=== PATIENT | female | born 1985 | race Caucasian/White ===

== ENCOUNTER 2019-04-05 08:12 | Emergency (ER) | payer BC ==
[~2019-04-05] VITALS: Ht 157.5 cm; Wt 60.1 kg
[2019-04-05 08:18] VITALS: BP 119/60
--- NOTE | 2019-04-05 08:25 | NUR ---
Abel ambulated to bed 6. RN evaluating patient at bedside.
--- NOTE | 2019-04-05 08:28 | NUR ---
33/F BIB SELF C/O RIGHT LOWER BACK PAIN X2 DAYS. NON-RADIATING INTERMITENT THROBING PAIN AT 5/10. EDD14, LMP 12/31/18, DONELL 09/07/18, .DENIES N/V/D; SKIN IS PINK/WARM/DRY; AAOX4 WITH EVEN AND STEADY GAIT; PATIENT POSITIONED FOR COMFORT; HOB ELEVATED; BEDRAILS UP X1; BED DOWN. ER MD MADE AWARE OF PT STATUS.
--- NOTE | 2019-04-05 08:33 | NUR ---
Dr. Caicedo evaluating patient at bedside.
[2019-04-05 08:59] LABS: APPEARANCE,URINE CLOUDY (CLEAR); BILIRUBIN,URINE NEGATIVE (NEGATIVE); COLOR,URINE YELLOW (YELLOW); LEUKOCYTE ESTERASE ,URINE 2+ (NEGATIVE); NITRITE, URINE POSITIVE (NEGATIVE); UGLUCOSE NEGATIVE (NEGATIVE)
[2019-04-05] MEDS ORDERED: cefTRIAXone 1,000 MG in LIDOCAINE MPF 1% - 5 mL VIAL 2.1 ML IM ONE (09:00)
--- NOTE | 2019-04-05 09:13 | NUR ---
Lashawn valiente in ED - 04/05/19 at 0916 by [facility] Patient discharged with v/s stable. Written and verbal after care instructions given and explained. Patient verbalized understanding. Ambulatory with steady gait. All questions addressed prior to discharge. Advised to follow up with PMD.
[2019-04-05 09:21] VITALS: BP 104/69
--- NOTE | 2019-04-05 09:21 | NUR ---
Patient discharged with v/s stable. Written and verbal after care instructions given and explained. Patient alert, oriented and verbalized understanding of instructions. Ambulatory with steady gait. All questions addressed prior to discharge. ID band removed. Patient advised to follow up with PMD. Rx of KEFLEX & ACETAMINOPHEN given. Patient educated on indication of medication including possible reaction and side effects. Opportunity to ask questions provided and answered.
[2019-04-05 09:28] LABS: BLOOD, URINE 1+ (NEGATIVE)
[2019-04-05 09:30] LABS: WBC,URINE 16-25 (MOD) /HPF (0-5)
[2019-04-05 09:32] LABS: RBC,URINE 0-5 /HPF (0-5)
== END 2019-04-05 09:21 | disposition home or self-care (01) ==
LOC: MED 08:12
DX: O23.42 Unspecified infection of urinary tract in pregnancy, second trimester (principal); Z3A.12 12 weeks gestation of pregnancy; Z98.890 Other specified postprocedural states
CPT/HCPCS: 81001; 87086; 87186; 96372; 99284; J0696; J2001

== ENCOUNTER 2022-04-17 07:52 | Emergency (ER) | payer BC ==
[~2022-04-17] VITALS: Ht 160 cm; Wt 64.9 kg
[2022-04-17 08:02] VITALS: BP 122/80
[2022-04-17] MEDS ORDERED: KETOROLAC 30 MG/ML VIAL IVP ONE (08:10)
[2022-04-17] MEDS ORDERED: NACL 0.9% 1,000 ML IV ONE (08:10)
[2022-04-17] MEDS ORDERED: METOCLOPRAMIDE 10 MG/2 ML INJ VIAL IVP ONE (08:10)
[2022-04-17] MEDS ORDERED: IMI50 PO (09:05)
[2022-04-17 09:27] VITALS: BP 111/66
== END 2022-04-17 09:27 | disposition home or self-care (01) ==
LOC: MED 07:52
DX: G43.909 Migraine, unspecified, not intractable, without status migrainosus (principal)
CPT/HCPCS: 81002; 81025; 96361; 96374; 96375; 99284; J1885; J2765; J7030